=== PATIENT | female | born 2000 | race Caucasian/White ===

== ENCOUNTER 2023-12-24 13:00 | Outpatient (CLI) | payer BC, SELFPAY | END 2023-12-24 13:01 | disposition home or self-care (01) | LOC: CHSCARD 13:03 | PROVIDERS: PCP Nurse Practitioner Family; Visit Provider Nurse Practitioner Family | DX: J45.40 Moderate persistent asthma, uncomplicated (principal) | CPT/HCPCS: 94060; 94726; 94729 ==